=== PATIENT | male | born 1990 | race African-American/Black ===

== ENCOUNTER 2025-08-11 10:59 | Emergency (ER) | payer OTHER, SELFPAY ==
--- NOTE | 2025-08-11 11:04 | ED.MALEGU ---
HPI - Male Genitourinary General Chief complaint: Urogenital-Male Stated complaint: STD Testing Time Seen by Provider: 08/11/25 11:04 Source: patient Mode of arrival: ambulatory Limitations: no limitations History of Present Illness HPI Narrative: Nils is a 35 year old male patient presenting to the clinic today with request for HSV type 2 testing. 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 He denies any penile discharge or painful lesions to his genital area. He denies any urinary symptoms or testicle pain. Related Data Home Medications ?Medication ?Instructions ?Recorded ?Confirmed ?Last Taken ?Type No Home Medications 08/11/25 08/11/25 Unknown History Allergies Allergy/AdvReac Type Severity Reaction Status Date / Time No Known Allergies Allergy Verified 08/11/25 11:47 Review of Systems Review of Systems: Pertinent positives per HPI. Patient denies any fever, chills, rash, headache, visual changes, dizziness, cough, runny nose, sore throat, shortness of breath, chest pain, palpitations, nausea, vomiting, diarrhea, constipation, abdominal pain, or any urinary issues. PMFSH Comments At the time of my signature, I reviewed and agree with the nursing past medical, surgical, social, and family history. There is no relevant family history pertinent to the patient complaint. Exam Narrative: General: Well-developed, well nourished, in no apparent distress. Head: Normocephalic, atraumatic. Cardio: Regular rate and rhythm, s1 and s2 normal, no murmur appreciated. Resp: Clear to auscultation bilaterally, no rhonchi, rales, wheezing or rubs. Abdomen: Soft, pliable, bowel sounds present in all quadrants, non-tender to palpation, no organomegly, no CVAT tenderness. : Deferred Course Course Emergency Course: Portions of this record may have been created with voice recognition software. Level of Care: Express Care Visit Vital Signs Vital signs: Vital Signs Temperature 36.8 C 08/11/25 11:13 Pulse Rate 67 08/11/25 11:13 Respiratory Rate 18 08/11/25 11:13 Blood Pressure 141/71 H 08/11/25 11:13 Pulse Oximetry 99 08/11/25 11:13 Oxygen Delivery Room Air 08/11/25 11:13 Temperature 36.8 C 08/11/25 11:13 Pulse Rate 67 08/11/25 11:13 Respiratory Rate 18 08/11/25 11:13 Blood Pressure 141/71 H 08/11/25 11:13 Pulse Oximetry 99 08/11/25 11:13 Oxygen Delivery Room Air 08/11/25 11:13 Vital signs reviewed MDM - Male Genitourinary MDM Narrative Medical decision making narrative: At the time of visit patient is resting comfortably on the exam table. Patient appears to be nontoxic. Request for HSV type 2 testing. 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 He denies any penile discharge or painful lesions to his genital area. He denies any urinary symptoms or testicle pain. He is only wanting HSV type 2 testing done. He declined any other concern for STI in the clinic today. Explained to the patient that we do not/can not do any blood testing or ordered for blood testing in the clinic. Can not do swabs if there is not any lesions. Recommend going to the [facility] or [facility] for blood testing. He voiced understanding. Plan: Patient here for encounter for STI/HSV type 2 testing. Make an appointment or walk in to the local [facility] or [facility] for testing as discussed. Supportive measures were discussed with the patient and they voiced understanding discharge instructions and agrees to treatment plan. Return precautions reviewed Differential Diagnosis Differential diagnosis: Likely genital herpes simplex and other (HSV 2, chlamydia, gonorrhea, trich, genital warts) Discharge Plan Discharge Clinical Impression: Encounter for screening examination for sexually transmitted infection Patient Disposition: Home Condition: Stable Instructions: Antibiotic Form, Genital Herpes Infection (ED), Safe Sex Practices (ED) Additional Instructions: Unfortunately were not able to do HSV blood test in the clinic. Recommend follow-up with [facility] or [facility] for further evaluation/testing as discussed. Patient Language: Tongan Prescriptions: No Action No Home Medications Follow-up/Referrals: UNKNOWN,DOCTOR [Non-Staff] Time of Disposition: 11:22 Quality NIHSS Nursing Documentation ED NIHSS nursing documentation: reviewed/agree
[2025-08-11 11:13] VITALS: BP 141/71; PULSE 67; RESP 18; TEMP 36.8; O2SAT 99
== END 2025-08-11 11:46 | disposition home or self-care (01) ==
PROVIDERS: Emergency Provider Nurse Practitioner Family
DX: Z11.3 Encounter for screening for infections with a predominantly sexual mode of transmission (principal)
CPT/HCPCS: 99202; G0463